=== PATIENT | female | born 1935 | race Two or more races ===

== ENCOUNTER 2022-07-26 09:46 | Outpatient (CLI) | payer OTHER | END 2022-07-26 09:47 | disposition home or self-care (01) | LOC: LAB 09:46 | PROVIDERS: ATTEND Surgery | DX: E21.0 Primary hyperparathyroidism (principal) ==

== ENCOUNTER 2022-08-03 05:05 | Day surgery (SDC) | payer OTHER ==
[~2022-08-03] VITALS: Ht 149.9 cm; Wt 50.8 kg
[~2022-08-03 05:05] MED LIST: FOLIC A PO; GLUMETZA1000 MG PO; SYNTHROID50 MCG PO; VITAMIN D310 MCG/1 M PO; ZOCOR PO
[2022-08-03] MEDS ORDERED: PERCOCET 5-3251 EACH PO (08:36)
== END 2022-08-03 11:50 | disposition home or self-care (01) ==
LOC: CIR.AMB 05:05
PROVIDERS: ATTEND Surgery
DX: E21.0 Primary hyperparathyroidism (principal); Z20.822 Contact with and (suspected) exposure to COVID-19; E78.5 Hyperlipidemia, unspecified; I10 Essential (primary) hypertension; E03.9 Hypothyroidism, unspecified